=== PATIENT | male | born 1980 | race Caucasian/White ===

== ENCOUNTER 2024-12-27 09:46 | Outpatient (CLI) | payer BC, SELFPAY ==
--- NOTE | 2024-12-27 10:01 | ECHO_ITS ---
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 Summary 1. Complete two-dimensional, color flow and Doppler transthoracic echocardiogram is performed. 2. Left ventricular chamber dimension is mildly enlarged. 3. Left ventricular systolic function is normal, estimated at 55-60%. 4. There is mild concentric increased left ventricular wall thickness. 5. The left ventricular diastolic function is normal. 6. E/e' 6 is not elevated. 7. The aortic valve is bicuspid. 8. There is mild aortic valve sclerosis. 9. There is mild to moderate aortic valve regurgitation. 10. There is mild tricuspid valve regurgitation. 11. No pulmonary hypertension, estimated pulmonary arterial systolic pressure is 25 mmHg. 12. There is trace pulmonic regurgitation. Left Ventricle E/e' 6 is not elevated. Left ventricular chamber dimension is mildly enlarged. Left ventricular systolic function is normal, estimated at 55-60%. There is mild concentric increased left ventricular wall thickness. The left ventricular diastolic function is normal. Right Ventricle Right ventricular systolic function is normal and with normal TAPSE 2.4 cm. Right ventricular chamber dimension is normal. Left Atria Left atrial chamber dimension is normal. Right Atria Right atrial chamber dimension is normal. Aortic Valve The aortic valve is bicuspid. There is mild aortic valve sclerosis. There is no aortic valve stenosis. There is mild to moderate aortic valve regurgitation. Pulmonic Valve There is trace pulmonic regurgitation. Mitral Valve There is no mitral valve stenosis. There is no mitral valve regurgitation. Tricuspid Valve There is mild tricuspid valve regurgitation. No pulmonary hypertension, estimated pulmonary arterial systolic pressure is 25 mmHg. Pericardium/Pleural There is no pericardial effusion. Inferior Vena Cava Normal inferior vena cava with >50% collapse upon inspiration consistent with normal right atrial pressure, 5 mmHg. Aorta The aortic root size at the sinus of Valsalva is normal. Left Ventricular Outflow Tract Name Value Normal LVOT 2D LVOT Diameter 2.5 cm LVOT Doppler LVOT Peak Gradient 2 mmHg LVOT Mean Gradient 1 mmHg LVOT VTI 19 cm LVOT VTI/AV VTI Ratio 0.5 LVOT Stroke Volume 90 ml LVOT CO 15.1 l/min LVOT CI 7.2 l/min/m2 Pulmonic Valve Name Value Normal PV Doppler PV Peak Gradient 5 mmHg Mitral Valve Name Value Normal MV Doppler MV Decel Routt 535 cm/s2 MV PHT 47 ms MV Area (PHT) 4.7 cm2 4.0-5.0 MV Diastolic Function MV E Peak Velocity 86 cm/s MV A Peak Velocity 40 cm/s MV E/A 2.2 MV Decel Time 160 ms MV Annular TDI MV E/e' (Septal) 8.7 <=8.0 MV E/e' (Lateral) 5.8 <=8.0 MV E/e' (Average) 7.2 Tricuspid Valve Name Value Normal TV Regurgitation Doppler TR Peak Velocity 221 cm/s TR Peak Gradient 20 mmHg Estimated PAP/RSVP RA Pressure 5 mmHg <=5 PA Systolic Pressure 25 mmHg <36 RV Systolic Pressure 25 mmHg <36 Aorta Name Value Normal Ascending Aorta Ao Root Diameter (MM) 3.3 cm Ao Root Diam Index (MM) 1.6 cm/m2 Aortic Valve Name Value Normal AV Doppler AV Peak Velocity 156 cm/s AV Peak Gradient 10 mmHg AV Mean Gradient 5 mmHg AV VTI 38 cm AV Area (Cont Eq VTI) 2.4 cm2 >=3.0 AV Area (Cont Eq Tony) 2.2 cm2 AV Regurgitation 2D LVOT Area 4.8 cm2 AV Regurgitation Doppler AR Decel Time 3,534 ms AR Decel Routt 101 cm/s2 AR PHT 1,025 ms Ventricles Name Value Normal LV Dimensions 2D/MM IVS Diastolic Thickness (2D) 1.5 cm 0.6-1.0 LVID Diastole (2D) 5.0 cm 4.2-5.8 LVIW Diastolic Thickness (2D) 1.2 cm 0.6-1.0 LVID Systole (2D) 3.5 cm 2.5-4.0 LVOT Diameter 2.5 cm LV Mass (2D Cubed) 271.53 g 88.00-224.00 LV Mass Index (2D Cubed) 130 g/m2 49-115 Relative Wall Thickness (2D) 0.47 LV Fractional Shortening/Ejection Fraction 2D/MM LV Fractional Shortening (2D) 29 % 25-43 LV EF (2D Teicholz) 56 % 52-72 LV Diastolic Volume (4C MOD) 146 ml LV EF (4C MOD) 57 % LV Diastolic Volume (2C MOD) 195 ml LV EF (2C MOD) 55 % LV Diastolic Volume (BP MOD) 175 ml 62-150 LV Diastolic Volume Index (BP MOD) 84 ml/m2 34-74 LV Systolic Volume (BP MOD) 77 ml 21-61 LV Systolic Volume Index (BP MOD) 37 ml/m2 11-31 LV EF (BP MOD) 56 % 52-72 LV Diastolic Length (4C) 8.8 cm LV Systolic Length (4C) 7.2 cm LV Stroke Volume (4C MOD) 82 ml RV Dimensions 2D/MM RVID Diastole (2D) 3.7 cm 2.5-3.5 Atria Name Value Normal LA Dimensions LA Dimension (MM) 2.7 cm 3.0-4.1 LA Volume (4C A-L) 51 ml LA Volume (BP A-L) 53 ml RA Dimensions RA Area (4C) 20.6 cm2 <=18.0 Report Signatures Amended by Pito Tan DO on 12/27/2024 11:56
--- OUTSIDE RECORDS SUMMARY | 2024-12-27 10:42 | XMS_ITS | Clinical Summary ---
Author Organization [facility] Address [address] [place] [address] Care Team Providers Care Agile Scrum Coach Name Role Phone Nathan Avila MD Primary Care Provider [phone] Allergies No known active allergies Medications albuterol sulfate HFA 108 (90 Base) MCG/ACT inhalerIndicatio ns:Acute cough Inhale 2 puffs into the lungs every 6 (six) hours as needed for Wheezing. 18 g 08/12/2022 Active Active Problems No known active problems Immunizations Immunization Administration Dates Next Due MODERNA COVID-19 (12+) MRNA, LNP-S, PF, 100 MCG/ 0.5 ML DOSE 11/01/2020,10/04/2020 Family History Relation Status Comments Father Alive Mother Alive Social History Tobacco Use Types Packs/Day Years Used Date Smoking Tobacco: Some Days Cigarettes Cigars Smokeless Tobacco: Current Chew Tobacco Cessation:Ready to Q uit: Not Asked; Counseling Given: Yes Alcohol Use Standard Drinks/Week Comments Yes 0 (1 standard drink = 0.6 oz pur e alcohol) social PHQ-2 Answer Date Recorded Patient Health Questionnaire-2 Score 0 08/12/2022 Sex and Gender Information Value Date Recorded Sex Assigned at Not on file Legal Sex Male 8:23 PM CDT Gender Identity Not on file Sexual Orientation Not on file Last Filed Vital Signs Vital Sign Reading Time Taken Comments Blood Pressure 141/81 08/12/2022 2:06 PM CATTLE TESTER Pulse 68 08/12/2022 2:06 PM CATTLE TESTER Temperature 36.3 C (97.4 F) 08/12/2022 2:06 PM CATTLE TESTER Respiratory Rate 18 08/12/2022 2:06 PM CATTLE TESTER Oxygen Saturation 95% 08/12/2022 2:06 PM CATTLE TESTER Inhaled Oxygen Concentration - - Weight 79.8 kg (176 lb) 08/12/2022 2:06 PM CATTLE TESTER Height 185.4 cm (6' 1 ) 08/12/2022 2:06 PM CATTLE TESTER Body Mass Index 23.22 08/12/2022 2:06 PM CATTLE TESTER Plan of Treatment Health Maintenance Due Date Last Done Comments Colorectal Cancer Screening Colonoscopy (10 Years) 1979 Annual Physical 1982 Hepatitis C 1997 DTaP, Tdap and Td Vaccines ( 1 - Tdap) 1998 Hepatitis B Vaccines (1 of 3 - 19+ 3-dose series) 1998 Pneumococcal Vaccine: Pediatrics (0 to 5 Years) and At-Risk Patients (6 to 49 Years) (1 of 2 - PCV) 1998 COVID-19 Vaccine (2023-2 5 season) 2024 11/01/2020, 10/04/2020 HPV Vaccines Aged Out No longer eligi ble based on patient's age to complete this topic Meningococcal B Vaccine Aged Out No l onger eligible based on patient's age to complete this topic Meningococcal Vaccine Aged Out No clotilde juan m eligible based on patient's age to complete this topic RSV Immunizations Under 20 Months Aged Out No longer eligible b ased on patient's age to complete this topic Insurance Ok vargas [place] [id number] [facility] [place] Care Teams Agile Scrum Coach Relationship Specialty Start Date End Date Nathan Avila MD [address] [place] [id number] PCP - General FAMILY PRACTICE 06/10/22
== END 2024-12-27 09:47 | disposition home or self-care (01) ==
PROVIDERS: Visit Provider Internal Medicine Cardiovascular Disease
DX: Q23.1 Congenital insufficiency of aortic valve (principal); I36.1 Nonrheumatic tricuspid (valve) insufficiency; I35.1 Nonrheumatic aortic (valve) insufficiency
CPT/HCPCS: 93306

== ENCOUNTER 2025-08-27 02:09 | Day surgery (SDC) | payer BC, SELFPAY ==
[2025-08-16 08:08] VITALS: BMI 23.2
--- OUTSIDE RECORDS SUMMARY | 2025-08-27 02:11 | XMS_ITS | Clinical Summary ---
Author Organization [facility] Address [address] [place] [address] Care Team Providers Care Sandwich And Drink Cart Operator Name Role Phone Nathan Avila MD Primary Care Provider [phone] Allergies No known active allergies Medications albuterol [...] Comments Blood Pressure 141/81 08/12/2022 2:06 PM LINING MAKER HAND Pulse 68 08/12/2022 2:06 PM LINING MAKER HAND Temperature 36.3 C (97.4 F) 08/12/2022 2:06 PM LINING MAKER HAND Respiratory Rate 18 08/12/2022 2:06 PM LINING MAKER HAND Oxygen Saturation 95% 08/12/2022 2:06 PM LINING MAKER HAND Inhaled Oxygen Concentration - - Weight 79.8 kg (176 lb) 08/12/2022 2:06 PM LINING MAKER HAND Height 185.4 cm (6' 1) 08/12/2022 2:06 PM LINING MAKER HAND Body Mass Index 23.22 08/12/2022 2:06 PM LINING MAKER HAND Plan of Treatment Health Maintenance Due Date [...] Years) (1 of 2 - PCV) 1998 HPV Vaccines (1 - 3-dose SCD M series) 2006 COVID-19 Vaccine (3 - 2024-2 6 season) 2025 11/01/2020, 10/04/2020 Influenza Adult (#1) 2025 Hepatitis A Vaccines Aged Out No long er eligible based on patient's age to complete this topic Meningococcal B Vaccine Aged Out No l onger eligible based on patient's age to complete this topic Meningococcal Vaccine Aged Out No clotilde juan m eligible based on patient's age to complete this topic RSV Immunizations Under 20 Months Aged Out No longer eligible b ased on patient's age to complete this topic Insurance [facility] Care Teams Sandwich And Drink Cart Operator Relationship Specialty Start Date End Date Nathan Avila MD [address] [place] [id number] PCP - General FAMILY PRACTICE 06/10/22
--- NOTE | 2025-08-27 10:55 | P.HP_ITS ---
History of Present Illness History of Present Illness Consent: Risks, benefits, and alternatives have been discussed and questions answered. Patient agrees to proceed with procedure. Chief complaint: Encounter for screening for malignant neoplasm of Narrative: Govind Summers is a 44 year old male who is here for screening colonoscopy. Review of Systems Review of Systems: All systems reviewed & are unremarkable except as noted in HPI and below PMFSH Past Medical History Medical History Heart murmur Aortic valve, bicuspid Body mass index (bmi) 25.0-25.9, adult (09/13/18) Social History Social History Social History: 09/18/24 very confident with medical forms Smoking status: Former smoker Tobacco type: smokeless tobacco Alcohol intake: never Substance use: current Substance use type: marijuana Other substance usage details: occassional Lack of Transportation: No Lack of Food: Never True Current Housing: I Have Housing Concerned About Future Housing: No Difficulty Paying Gas/Electric Bills: No Difficulty Paying for Meds: No Currently Unemployed: No Education: Master's Degree or Higher Difficulty w/ Childcare or Family Care: No Living arrangements: with family Occupation/Education: occupation Additional occupation/education comments: teacher Gender identity (if verbalized by the patient): Male Sexual Orientation (if Verbalized by the Patient): Straight or Heterosexual Spiritual care concerns: No Meds Home Medications and Allergies Home Medications ?Medication ?Instructions ?Recorded ?Confirmed ?Type No Home Medications 09/13/23 08/16/25 H istory Allergies Allergy/AdvReac Type Severity Reaction Status Date / Time No Known Allergies Allergy Verified 08/27/25 10:57 Exam Const: General: comfortable HENMT: Face/Nose/Sinus: Normal nares present Neck: Neck: supple Resp: Auscultation: clear to auscultation bilaterally Cardio: Rate: regular rate GI: GI Palp: Yes Soft to palpation Neuro: General: gait normal Extrem: General: normal to inspection Assessment and Plan Assessment and plan (1) Normal screening colonoscopy: Code(s): Z12.11 - Encounter for screening for malignant neoplasm of colon Status: Acute
[2025-08-27 10:59] VITALS: BP 112/58; PULSE 61; RESP 20; TEMP 36.3; O2SAT 99
[2025-08-27] MEDS: LACTATED RINGERS 1,000 ML 150 ML IV CONT (11:09)
--- NOTE | 2025-08-27 11:38 | WPDANESEPPF ---
Anes - Initial Pre Proc Eval Procedure: Operation Date: 08/27/25 12:30 Proposed Procedures p Screening Colonoscopy - Ronald Avilez MD Date/Time: 08/27/25 11:38 Surgeon: Ronald Avilez MD Pre Op Diagnosis: Encounter for screening for malignant neoplasm of Patient Data Age: 44 Gender: M Height: 1.85 m Weight: 77.2 kg Last Vital Signs Temp 36.3 C L 08/27/25 10:59 Pulse 61 08/27/25 10:59 Resp 20 08/27/25 10:59 BP 112/58 L 08/27/25 10:59 Pulse Ox 99 08/27/25 10:59 O2 Del Method Room Air 08/27/25 10:59 Allergies Allergy/AdvReac Type Severity Reaction Status Date / Time No Known Allergies Allergy Verified 08/27/25 10:57 Home Medications ?Medication ?Instructions ?Recorded ?Confirmed ?Type No Home Medications 09/13/23 08/16/25 History Patient hx anesthesia problems: none Family hx anesthesia problems: none Results Review: All pre-operative results and documents have been reviewed as part of the pre-operative evaluation. [facility] Past Medical History Medical History Heart murmur Aortic valve, bicuspid Body mass index (bmi) 25.0-25.9, adult (09/13/18) Social History Social History Social History: 09/18/24 very confident with medical forms Smoking status: Former smoker Tobacco type: smokeless tobacco Alcohol intake: never Substance use: current Substance use type: marijuana Other substance usage details: occassional Lack of Transportation: No Lack of Food: Never True Current Housing: I Have Housing Concerned About Future Housing: No Difficulty Paying Gas/Electric Bills: No Difficulty Paying for Meds: No Currently Unemployed: No Education: Master's Degree or Higher Difficulty w/ Childcare or Family Care: No Living arrangements: with family Occupation/Education: occupation Additional occupation/education comments: teacher Gender identity (if verbalized by the patient): Male Sexual Orientation (if Verbalized by the Patient): Straight or Heterosexual Spiritual care concerns: No Anes - Eval Final PreProcedure Day of Procedure 08/27/25 11:38 Patient weight: normal Heart: regular rate and rhythm Lungs: clear to auscultation Airway: Mallampati scale class II Neurological: alert and oriented Last oral intake: >/= 8 hours ASA classification: III Emergent: no Anesthetic plan: proceed Anesthesia type and monitoring: general GIVS and standard monitoring Results Review: All pre-operative results and documents have been reviewed as part of the pre-operative evaluation. Informed Consent: The patient's anesthetic plan and its attendant risks and benefits were discussed with the patient/family/POA. Questions were solicited and answers provided to the satisfaction of the patient/family/POA.
--- NOTE | 2025-08-27 11:51 | S_PTH ---
PATIENT: Govind Summers LOC: [facility]#:[id number] AGE/SX: 44/M ROOM: RE08/27/[address]: Ronald Avilez MD : 1980 BED: DIS: 08/27/2025 SPEC #: [id number] RECD: 08/27/25 13:28 STATUS: TEJA BAUTISTA #: [id number] OLI: 08/27/25 11:[address]: Elmer Lew DEPT: [facility] Surgical RECD BY: Kinza Yoon ENTERED: 08/27/25 13:33 SP TYPE: Surgical OTHR DR: ERA Corea MD Tissues: A - Colon Polypectomy B - Rectal Polyp Procedures: Hematoxylin and Eosin Stain Gross and Microscopic Level 4
[2025-08-27 11:52] VITALS: BP 105/73; PULSE 55; RESP 28; O2SAT 99
[2025-08-27 12:02] VITALS: BP 116/51; PULSE 52; RESP 27; O2SAT 99
[2025-08-27 12:12] VITALS: BP 118/62; PULSE 50; RESP 20; O2SAT 100
== END 2025-08-27 12:27 | disposition home or self-care (01) ==
PROVIDERS: Internal Medicine Gastroenterology; PCP Nurse Practitioner Family; Referring Provider Nurse Practitioner Family; Visit Provider Internal Medicine Gastroenterology
PROC: 0DJD8ZZ Inspection of Lower Intestinal Tract, Via Natural or Artificial Opening Endoscopic (ICD-10-PCS; CPT 45378; principal; 2025-08-27 12:30)
DX: Z12.11 Encounter for screening for malignant neoplasm of colon (principal); D12.5 Benign neoplasm of sigmoid colon; K62.1 Rectal polyp; F12.90 Cannabis use, unspecified, uncomplicated; Z87.891 Personal history of nicotine dependence
CPT/HCPCS: 45385; 88305; J2704; J7120